=== PATIENT | male | born 1970 | race American Indian/Alaskan Native ===

== ENCOUNTER 2019-04-02 22:38 | Emergency (ER) | payer SELFPAY ==
[2019-04-02] MEDS ORDERED: THIAMINE 100 MG, FOLIC ACID 1 MG, MULTIPLE VITAMIN INJ, ADULT 10 ML in SODIUM CHLORIDE ... IV ONE (23:00)
[2019-04-02] MEDS ORDERED: FAMOTIDINE 20 MG/2 ML INJ IV ONE (23:00)
[2019-04-02] MEDS ORDERED: ONDANSETRON 4 MG/2 ML INJ IV ONE (23:00)
[2019-04-02] MEDS ORDERED: D5W/0.9% NACL 1,000 ML IV SCH (23:00)
--- NOTE | 2019-04-02 23:15 | Emergency Department Report ---
ED Alcohol HPI - General Chief Complaint: Alcohol Stated Complaint: DETOX Time Seen by Provider: 04/02/19 22:52 Source: patient, EMS Mode of arrival: Stretcher Limitations: No Limitations - History of Present Illness Initial Comments: 48-year-old male with a past medical history of alcohol abuse, bipolar and anxiety currently on BuSpar and Seroquel presents to the hospital complaining of nausea, vomiting, epigastric burning/reflux due to excessive alcohol intake the last 3 days. Patient states beer daily but lately states he's been overdoing it due to the recent in the family. He denies suicidal or homicidal ideation. He has a history of alcohol withdrawal tremors and seizures. He is not interested in inpatient detox. Compliant with his psychiatric medication. He denies melena, gross hematemesis, chest pain, or fever. pt also reports hx of "borderline HTN and elevated cholesterol" not currently on meds - Related Data Previous Rx's Medication Instructions Recorded Last Taken Type Famotidine [Pepcid] 20 mg PO BID #30 tablet 04/03/19 Unknown Rx Ondansetron [Zofran Odt] 4 mg PO Q8HR PRN #20 tab.rapdis 04/03/19 Unknown Rx Allergies Allergy/AdvReac Type Severity Reaction Status Date / Time No Known Allergies Allergy Unverified 04/02/19 23:19 ED Review of Systems ROS: Stated complaint: DETOX Other details as noted in HPI Comment: All other systems reviewed and negative ED Past Medical Hx - Past Medical History Previous Medical History?: Yes Hx Hypertension: Yes ("borderline") Hx Psychiatric Treatment: Yes (anxiety, bipolar) Additional medical history: borderline elevated cholesterol - Surgical History Past Surgical History?: No - Social History Smoking Status: Current Every Day Smoker Substance Use Type: Alcohol - Medications Home Medications: Home Medications Medication Instructions Recorded Confirmed Last Taken Type Famotidine [Pepcid] 20 mg PO BID #30 tablet 04/03/19 Unknown Rx Ondansetron [Zofran Odt] 4 mg PO Q8HR PRN #20 tab.rapdis 04/03/19 Unknown Rx ED Physical Exam - General Limitations: No Limitations - Other Other exam information: General: No acute distress Head: Atraumatic Eyes: normal appearance ENT: Moist mucous membranes Neck: Normal appearance, no midline tenderness Chest: Clear to auscultation bilaterally CV: Regular rate and rhythm Abdomen: Soft, normal bowel sounds, mild epigastric tenderness, nondistended, no rebound or guarding Back: Normal inspection Extremity: Normal inspection infection, full range of motion Neuro: Alert O x 3, no facial asymmetry, speech clear, no gross motor sensory deficit, no tremor Psych: Appropriate behavior Skin: No rash ED Course Vital Signs 04/02/19 04/03/19 22:56 01:35 Temperature 98.8 F Pulse Rate 98 H 81 Respiratory 18 16 Rate Blood Pressure 162/89 Blood Pressure 128/95 [Left] O2 Sat by Pulse 96 97 Oximetry ED Medical Decision Making - Lab Data Result diagrams: 04/02/19 23:06 04/02/19 23:06 Lab Results 04/02/19 04/02/19 04/02/19 Range/Units 00:30 00:30 23:06 WBC 11.0 (4.5-11.0) K/mm3 RBC 5.18 H (3.65-5.03) M/mm3 Hgb 17.0 H (11.8-15.2) gm/dl Hct 48.6 H (35.5-45.6) % MCV 94 (84-94) fl MCH 33 H (28-32) pg MCHC 35 H (32-34) % RDW 14.4 (13.2-15.2) % Plt Count 288 (140-440) K/mm3 Lymph % (Auto) 33.5 (13.4-35.0) % Dickinson % (Auto) 6.4 (0.0-7.3) % Eos % (Auto) 2.0 (0.0-4.3) % Baso % (Auto) 0.6 (0.0-1.8) % Lymph # 3.7 (1.2-5.4) K/mm3 Dickinson # 0.7 (0.0-0.8) K/mm3 Eos # 0.2 (0.0-0.4) K/mm3 Baso # 0.1 (0.0-0.1) K/mm3 Seg Neutrophils % 57.6 (40.0-70.0) % Seg Neutrophils # 6.2 (1.8-7.7) K/mm3 Sodium (137-145) mmol/L Potassium (3.6-5.0) mmol/L Chloride (98-107) mmol/L Carbon Dioxide (22-30) mmol/L Anion Gap mmol/L BUN (9-20) mg/dL Creatinine (0.8-1.5) mg/dL Estimated GFR ml/min BUN/Creatinine Ratio % Glucose (75-100) mg/dL Calcium (8.4-10.2) mg/dL Magnesium (1.7-2.3) mg/dL Total Bilirubin (0.1-1.2) mg/dL AST (5-40) units/L ALT (7-56) units/L Alkaline Phosphatase (35-129) units/L Total Protein (6.3-8.2) g/dL Albumin (3.9-5) g/dL Albumin/Globulin Ratio % Lipase (13-60) units/L Urine Color Straw (Yellow) Urine Turbidity Clear (Clear) Urine pH 6.0 (5.0-7.0) Ur Specific [place] 1.010 (1.003-1.030) Urine Protein <15 mg/dl (Negative) mg/dL Urine Glucose (UA) >=500 (Negative) mg/dL Urine Ketones Neg (Negative) mg/dL Urine Blood Sm (Negative) Urine Nitrite Neg (Negative) Urine Bilirubin Neg (Negative) Urine Urobilinogen < 2.0 (<2.0) mg/dL Ur Leukocyte Esterase Neg (Negative) Urine WBC (Auto) < 1.0 (0.0-6.0) /HPF Urine RBC (Auto) < 1.0 (0.0-6.0) /HPF Urine Opiates Screen Presumptive negative Urine Methadone Screen Presumptive negative Ur Barbiturates Screen Presumptive negative Ur Phencyclidine Scrn Presumptive negative Ur Amphetamines Screen Presumptive negative U Benzodiazepines Scrn Presumptive negative Urine Cocaine Screen Presumptive negative U Marijuana (THC) Screen Presumptive negative Drugs of Abuse Note Disclamer Plasma/Serum Alcohol (0-0.07) % 04/02/19 04/02/19 Range/Units 23:06 23:06 WBC (4.5-11.0) K/mm3 RBC (3.65-5.03) M/mm3 Hgb (11.8-15.2) gm/dl Hct (35.5-45.6) % MCV (84-94) fl MCH (28-32) pg MCHC (32-34) % RDW (13.2-15.2) % Plt Count (140-440) K/mm3 Lymph % (Auto) (13.4-35.0) % Dickinson % (Auto) (0.0-7.3) % Eos % (Auto) (0.0-4.3) % Baso % (Auto) (0.0-1.8) % Lymph # (1.2-5.4) K/mm3 Dickinson # (0.0-0.8) K/mm3 Eos # (0.0-0.4) K/mm3 Baso # (0.0-0.1) K/mm3 Seg Neutrophils % (40.0-70.0) % Seg Neutrophils # (1.8-7.7) K/mm3 Sodium 140 (137-145) mmol/L Potassium 4.9 (3.6-5.0) mmol/L Chloride 97.9 L (98-107) mmol/L Carbon Dioxide 28 (22-30) mmol/L Anion Gap 19 mmol/L BUN 13 (9-20) mg/dL Creatinine 1.2 (0.8-1.5) mg/dL Estimated GFR > 60 ml/min BUN/Creatinine Ratio 11 % Glucose 106 H (75-100) mg/dL Calcium 9.8 (8.4-10.2) mg/dL Magnesium 2.30 (1.7-2.3) mg/dL Total Bilirubin 0.40 (0.1-1.2) mg/dL AST 20 (5-40) units/L ALT 28 (7-56) units/L Alkaline Phosphatase 104 (35-129) units/L Total Protein 7.4 (6.3-8.2) g/dL Albumin 4.8 (3.9-5) g/dL Albumin/Globulin Ratio 1.8 % Lipase 18 (13-60) units/L Urine Color (Yellow) Urine Turbidity (Clear) Urine pH (5.0-7.0) Ur Specific [place] (1.003-1.030) Urine Protein (Negative) mg/dL Urine Glucose (UA) (Negative) mg/dL Urine Ketones (Negative) mg/dL Urine Blood (Negative) Urine Nitrite (Negative) Urine Bilirubin (Negative) Urine Urobilinogen (<2.0) mg/dL Ur Leukocyte Esterase (Negative) Urine WBC (Auto) (0.0-6.0) /HPF Urine RBC (Auto) (0.0-6.0) /HPF Urine Opiates Screen Urine Methadone Screen Ur Barbiturates Screen Ur Phencyclidine Scrn Ur Amphetamines Screen U Benzodiazepines Scrn Urine Cocaine Screen U Marijuana (THC) Screen Drugs of Abuse Note Plasma/Serum Alcohol 0.21 H (0-0.07) % - Medical Decision Making pt tx with D5NS, banana bag, Zofran, and Pepcid in the ED with improvement. At discharge no signs of tremors alcohol withdrawal Gait steady Patient offer for inpatient detox Patient be discharged home - Differential Diagnosis substance abuse, alcohol abuse, Critical Care Time: No Critical care attestation.: If time is entered above; I have spent that time in minutes in the direct care of this critically ill patient, excluding procedure time. ED Disposition Clinical Impression: Alcohol intoxication, Alcohol abuse, Alcoholic gastritis Disposition: TO HOME OR SELFCARE Is pt being admited?: No Does the pt Need Aspirin: No Condition: Stable Instructions: Alcohol Intoxication (ED), Gastritis (ED) Additional Instructions: Take the medication as prescribed. Follow-up with your doctor or doctor/clinic provided. Return if symptoms worsen as indicated by your discharge instructions. Prescriptions: Famotidine [Pepcid] 20 mg PO BID #30 tablet Ondansetron [Zofran Odt] 4 mg PO Q8HR PRN #20 tab.rapdis PRN Reason: Nausea And Vomiting Referrals: PRIMARY CARE, [Primary Care Provider] - 3-5 Days [facility] [Provider Group] - 3-5 Days [facility] [Outside] - 3-5 Days Time of Disposition: 03:13
[2019-04-02 23:17] LABS: Basophils # (Auto) 0.1 K/mm3 (0.0-0.1); Eosinophils # (Auto) 0.2 K/mm3 (0.0-0.4); Monocytes # (Auto) 0.7 K/mm3 (0.0-0.8); Monocytes % (Auto) 6.4 % (0.0-7.3)
[2019-04-02 23:30] LABS: Basophils % (Auto) 0.6 % (0.0-1.8); Hematocrit 48.6 % (35.5-45.6); Lymphocytes # (Auto) 3.7 K/mm3 (1.2-5.4); Lymphocytes % (Auto) 33.5 % (13.4-35.0); Mean Corpuscular HGB Conc 35 % (32-34); Mean Corpuscular Volume 94 fl (84-94); Platelet Count 288 K/mm3 (140-440); Red Blood Count 5.18 M/mm3 (3.65-5.03); Red Cell Distribution Width 14.4 % (13.2-15.2)
[2019-04-02 23:42] LABS: Alanine Aminotransferase 28 units/L (7-56); Albumin 4.8 g/dL (3.9-5); BUN/Creatinine Ratio 11; Blood Urea Nitrogen 13 mg/dL (9-20); Calcium 9.8 mg/dL (8.4-10.2); Hemolysis Index 22
[2019-04-03 01:09] LABS: Bilirubin,Urine NEG (Negative); Blood,Urine SM (Negative); Color,Urine Straw (Yellow); Protein,Urine <15 mg/dL mg/dL (Negative); RBC,Urine < 1.0 /HPF (0.0-6.0); Urobilinogen,Urine < 2.0 mg/dL (<2.0); WBC,Urine < 1.0 /HPF (0.0-6.0)
[2019-04-03 01:15] LABS: Amphetamine Screen,Urine PRESUMPTIVE NEGATIVE; Benzodiazepines Screen,Urine PRESUMPTIVE NEGATIVE; Cannabinoid Screen,Urine PRESUMPTIVE NEGATIVE; Cocaine Screen,Urine PRESUMPTIVE NEGATIVE; Methadone Screen,Urine PRESUMPTIVE NEGATIVE; Opiate Screen,Urine PRESUMPTIVE NEGATIVE
[2019-04-03 03:27] VITALS: BP 134/83
== END 2019-04-03 03:27 | disposition home or self-care (01) ==
LOC: ED 22:38
DX: K29.20 Alcoholic gastritis without bleeding (principal); F10.129 Alcohol abuse with intoxication, unspecified; Z79.899 Other long term (current) drug therapy; I10 Essential (primary) hypertension; F32.9 Major depressive disorder, single episode, unspecified; E78.00 Pure hypercholesterolemia, unspecified; F17.200 Nicotine dependence, unspecified, uncomplicated
CPT/HCPCS: 36415; 80053; 80307; 81001; 83690; 83735; 85025; 96361; 96365; 96375; 99284; J2405; J3411; J7030; J7042; 80320; G0480

== ENCOUNTER 2019-09-25 15:06 | Emergency (ER) | payer SELFPAY ==
--- NOTE | 2019-09-25 15:36 | Emergency Department Report ---
Blank Doc - Documentation Documentation: 49-year-old male that presents with alcohol withdraw with shaking, nausea, and nervous. Last drink was last night. This initial assessment/diagnostic orders/clinical plan/treatment(s) is/are subject to change based on patient's health status, clinical progression and re-assessment by fellow clinical providers in the ED. Further treatment and workup at subsequent clinical providers discretion. Patient/guardians urged not to elope from the ED as their condition may be serious if not clinically assessed and managed. Initial orders include: 1- Patient sent to [facility] for further evaluation and treatment 2- labs 3- UA
[2019-09-25] MEDS ORDERED: LORazepam 2 MG/ML VIAL IV PRN ×2 (16:58)
[2019-09-25 17:04] LABS: Hematocrit 48.8 % (35.5-45.6); Hemoglobin 16.7 gm/dl (11.8-15.2); Mean Corpuscular HGB Conc 34 % (32-34); Mean Corpuscular Volume 94 fl (84-94); Platelet Count 186 K/mm3 (140-440); Red Blood Count 5.19 M/mm3 (3.65-5.03); Red Cell Distribution Width 14.5 % (13.2-15.2)
[2019-09-25] MEDS ORDERED: ONDANSETRON 4 MG/2 ML INJ IV ONE (17:13)
[2019-09-25 17:16] LABS: Alanine Aminotransferase 30 units/L (7-56); Albumin 5.1 g/dL (3.9-5); BUN/Creatinine Ratio 14; Blood Urea Nitrogen 14 mg/dL (9-20); Hemolysis Index 6
--- NOTE | 2019-09-25 17:20 | Emergency Department Report ---
ED Alcohol HPI - General Chief Complaint: Alcohol Stated Complaint: WITHDRAWLS,VOMITTING Time Seen by Provider: 09/25/19 15:35 Source: patient Mode of arrival: Ambulatory Limitations: No Limitations - History of Present Illness Initial Comments: Patient is 49 years old male with history of bipolar disorder and alcohol dependence. Patient presented to the ER stating that he is having some alcohol withdrawal symptoms. Patient stated that he has been drinking for the last 2 weeks straight and he tried to quit today but he started having shaking and he started having visual hallucination. Patient also stated that he started having nausea and vomiting. Patient denied any seizure. Patient also denied any suicidal or homicidal ideation. No visual or auditory hallucination. Patient stated that he has been in alcohol rehab before in [facility] a few years back. Complaint: alcohol withdrawal, alcohol dependence, desires rehab Last Drink: just PART TIME Chronic Alcohol Use: Yes Previous Visits for Alcohol Intoxication?: Yes Recent Trauma: No Treatments Prior to Arrival: none - Related Data Previous Rx's Medication Instructions Recorded Last Taken Type Famotidine [Pepcid] 20 mg PO BID #30 tablet 04/03/19 Unknown Rx Ondansetron [Zofran Odt] 4 mg PO Q8HR PRN #20 tab.rapdis 04/03/19 Unknown Rx Allergies Allergy/AdvReac Type Severity Reaction Status Date / Time metaxalone [From Skelaxin] Allergy Swelling Verified 09/25/19 15:10 ED Review of Systems ROS: Stated complaint: WITHDRAWLS,VOMITTING Other details as noted in HPI Comment: All other systems reviewed and negative Constitutional: denies: chills, fever Respiratory: denies: cough, orthopnea, shortness of breath Cardiovascular: denies: chest pain, palpitations, dyspnea on exertion, orthopnea Gastrointestinal: nausea, vomiting. denies: abdominal pain, diarrhea, constip ation, hematemesis, melena Neurological: denies: headache, weakness, numbness Psychiatric: anxiety, visual hallucinations. denies: depression, auditory hallucinations, homicidal thoughts, suicidal thoughts ED Past Medical Hx - Past Medical History Hx Hypertension: Yes ("borderline") Hx Psychiatric Treatment: Yes (anxiety, bipolar) Additional medical history: borderline elevated cholesterol - Social History Smoking Status: Never Smoker Substance Use Type: Alcohol - Medications Home Medications: Home Medications Medication Instructions Recorded Confirmed Last Taken Type Famotidine [Pepcid] 20 mg PO BID #30 tablet 04/03/19 Unknown Rx Ondansetron [Zofran Odt] 4 mg PO Q8HR PRN #20 tab.rapdis 04/03/19 Unknown Rx ED Physical Exam - General Limitations: No Limitations General appearance: alert, in no apparent distress, anxious - Head Head exam: Present: atraumatic, normocephalic, normal inspection - Eye Eye exam: Present: normal appearance - ENT ENT exam: Present: mucous membranes dry - Neck Neck exam: Present: normal inspection, full ROM. Absent: tenderness, meningismus, lymphadenopathy, thyromegaly - Respiratory Respiratory exam: Present: normal lung sounds bilaterally - Cardiovascular Cardiovascular Exam: Present: tachycardia - GI/Abdominal GI/Abdominal exam: Present: soft, normal bowel sounds. Absent: distended, tenderness, guarding, rebound, rigid, organomegaly, mass, bruit, pulsatile mass, hernia - Extremities Exam Extremities exam: Present: normal inspection, full ROM, normal capillary refill. Absent: tenderness, pedal edema, joint swelling, calf tenderness - Back Exam Back exam: Present: normal inspection, full ROM. Absent: CVA tenderness (R), CVA tenderness (L) - Neurological Exam Neurological exam: Present: alert, oriented X3, CN II-XII intact, normal gait, reflexes normal. Absent: motor sensory deficit - Psychiatric Psychiatric exam: Present: normal mood, anxious. Absent: homicidal ideation, suicidal ideation - Skin Skin exam: Present: warm, intact, normal color ED Course Vital Signs 09/25/19 09/25/19 09/25/19 15:14 15:15 17:21 Temperature 98.1 F 98.1 F Pulse Rate 103 H 103 H Respiratory 20 20 Rate Blood Pressure 157/96 148/85 Blood Pressure 157/96 [Left] O2 Sat by Pulse 96 97 Oximetry 09/25/19 09/25/19 09/25/19 17:30 17:46 18:00 Temperature Pulse Rate 85 96 H 83 Respiratory 15 13 12 Rate Blood Pressure 148/85 148/85 148/85 Blood Pressure [Left] O2 Sat by Pulse Oximetry 09/25/19 09/25/19 09/25/19 18:16 19:37 19:46 Temperature Pulse Rate 92 H 87 Respiratory 12 13 Rate Blood Pressure 148/85 144/95 144/95 Blood Pressure [Left] O2 Sat by Pulse Oximetry 09/25/19 20:00 Temperature Pulse Rate 86 Respiratory 14 Rate Blood Pressure 130/94 Blood Pressure [Left] O2 Sat by Pulse Oximetry ED Medical Decision Making - Lab Data Result diagrams: 09/25/19 16:48 09/25/19 16:48 - EKG Data -: EKG Interpreted by Me EKG shows normal: sinus rhythm Rate: normal - EKG Data Interpretation: no acute changes - Medical Decision Making Patient is 49 years old male with history of bipolar disorder and alcohol dependence. Patient presented to the ER stating that he is having some alcohol withdrawal symptoms. Patient stated that he has been drinking for the last 2 weeks straight and he tried to quit today but he started having shaking and he started having visual hallucination. Patient also stated that he started having nausea and vomiting. Patient denied any seizure. Patient also denied any suicidal or homicidal ideation. No visual or auditory hallucination. Patient stated that he has been in alcohol rehab before in [facility] a few years back. Patient CIWA score is 11. Patient received Ativan 2 mg. Patient also received Zofran for nausea and vomiting and is started on banana bag. Patient stated that he is feeling much better and he stated that he does not want to stay going to go home and he does not want a mental health assessment. Patient is currently alert, oriented x3 no acute distress and able to make sound decision there is no criteria for involuntary hold. Patient advised to return to the ER if his symptoms get worse. Critical care attestation.: If time is entered above; I have spent that time in minutes in the direct care of this critically ill patient, excluding procedure time. ED Disposition Clinical Impression: Alcohol withdrawal Disposition: DC-01 TO HOME OR SELFCARE Is pt being admited?: No Condition: Stable Instructions: Acute Nausea and Vomiting (ED), Abuse of Alcohol (ED) Referrals: PRIMARY CARE, [Primary Care Provider] - 3-5 Days
[2019-09-25] MEDS ORDERED: THIAMINE 100 MG, FOLIC ACID 1 MG, MULTIPLE VITAMIN INJ, ADULT 10 ML in SODIUM CHLORIDE ... IV ONE (17:30)
[2019-09-25 17:49] LABS: Albumin 5.2 g/dL (3.9-5); Bilirubin,Direct 0.3 mg/dL (0-0.2)
[2019-09-25] MEDS: LORazepam 2 MG/ML VIAL IV PRN ×2 (17:49→20:02)
[2019-09-25 20:12] VITALS: BP 130/94
[2019-09-25 20:25] LABS: Bilirubin,Urine NEG (Negative); Blood,Urine NEG (Negative); Color,Urine Yellow (Yellow); Mucus,Urine FEW /HPF; Urobilinogen,Urine < 2.0 mg/dL (<2.0)
[2019-09-25 20:28] LABS: WBC,Urine < 1.0 /HPF (0.0-6.0)
[2019-09-25 20:33] LABS: Amphetamine Screen,Urine PRESUMPTIVE NEGATIVE; Benzodiazepines Screen,Urine PRESUMPTIVE NEGATIVE; Cannabinoid Screen,Urine PRESUMPTIVE NEGATIVE; Cocaine Screen,Urine PRESUMPTIVE NEGATIVE; Methadone Screen,Urine PRESUMPTIVE NEGATIVE; Opiate Screen,Urine PRESUMPTIVE NEGATIVE
== END 2019-09-25 21:34 | disposition home or self-care (01) ==
LOC: ED 15:06
DX: F10.239 Alcohol dependence with withdrawal, unspecified (principal); F31.9 Bipolar disorder, unspecified; F41.9 Anxiety disorder, unspecified; I10 Essential (primary) hypertension; Z88.8 Allergy status to other drugs, medicaments and biological substances; Z98.890 Other specified postprocedural states
CPT/HCPCS: 36415; 80053; 80076; 80307; 81001; 83690; 85025; 93005; 96365; 96366; 96375; 99284; J2060; J2405; J3411; J7030; 80320; G0480

== ENCOUNTER 2020-01-16 17:03 | Emergency (ER) | payer SELFPAY ==
--- NOTE | 2020-01-16 18:15 | Emergency Department Report ---
Chief Complaint: Back Pain/Injury Stated Complaint: LOW BACK PAIN/FALL - HPI History of Present Illness: 49 y/o male comes in for lower back pain that is chronic. Patient was seen here several times last month. Patient is asking for narcotics for pain. - Exam Physical Exam: AxO times 3 NAD non toxic ambulatory MSE screening note: Focused history and physical exam performed. Due to findings the following was ordered: 49 y/o male comes in for lower back pain that is chronic. Patient was seen here several times last month. Patient is asking for narcotics for pain. Patient is given a referral to spine and ortho. ED Disposition for MSE Clinical Impression: Chronic back pain Disposition: Z-07 MED SCREENING EXAM-LEFT Is pt being admited?: No Does the pt Need Aspirin: No Condition: Stable Instructions: Chronic Back Pain (ED) Additional Instructions: Follow up with a back specialist. Referrals: RADHA BALDERAS II, MD [Staff Physician] - 3-5 Days DIEUDONNE VALENCIA MD [Staff Physician] - 3-5 Days
== END 2020-01-16 18:28 | disposition left against medical advice (07) ==
LOC: ED 17:03
DX: M54.5 Low back pain (principal); G89.29 Other chronic pain; Z53.21 Procedure and treatment not carried out due to patient leaving prior to being seen by health care provider

== ENCOUNTER 2020-12-31 03:59 | Emergency (ER) | payer SELFPAY ==
[2020-12-31 04:07] VITALS: BP 153/90
--- NOTE | 2020-12-31 05:05 | Emergency Department Report ---
ED General Adult HPI - General Chief complaint: Back Pain/Injury Stated complaint: BACK PAIN Time Seen by Provider: 12/31/20 04:49 Source: patient Mode of arrival: Ambulatory Limitations: No Limitations - History of Present Illness Initial comments: 50-year-old male patient with history of lumbar spinal stenosis presents to the emergency department with complaints of an acute exacerbation of chronic lower back pain for 1 week. No recent fall, trauma, injury. Patient underwent an MRI 2 years ago and was diagnosed with spinal stenosis. He is not currently under the care of a underwriting specialist or physical therapist. Patient has previously received spinal epidural injections with relief. Patient was evaluated at another local emergency department this week for his chronic back pain. He was given a Toradol injection and discharged home reportedly without any prescriptions. Patient walked to the emergency department from an apartment complex several blocks away. Denies fever, paresthesias, numbness, weakness, saddle anesthesia, bladder/bowel dysfunction. Denies all other complaints at this time. - Related Data Previous Rx's Medication Instructions Recorded Last Taken Type Famotidine [Pepcid] 20 mg PO BID #30 tablet 04/03/19 Unknown Rx Ondansetron [Zofran Odt] 4 mg PO Q8HR PRN #20 tab.rapdis 04/03/19 Unknown Rx Ondansetron [Zofran Odt] 4 mg PO Q8HR PRN #14 tab.rapdis 09/25/19 Unknown Rx Lidocaine [Lidoderm] 1 each TP BID #20 adh..patch 12/31/20 Unknown Rx Naproxen 500 mg PO BID #20 tablet 12/31/20 Unknown Rx Allergies Allergy/AdvReac Type Severity Reaction Status Date / Time metaxalone [From Skelaxin] Allergy Swelling Verified 09/25/19 15:10 ED Review of Systems ROS: Stated complaint: BACK PAIN Other details as noted in HPI Other: GENERAL: Negative for fever. CARDIOVASCULAR: Negative for chest pain. PULMONARY: Negative for shortness of breath. GASTROINTESTINAL: Negative for abdominal pain. MUSCULOSKELETAL: Positive for back pain. NEUROLOGICAL: Negative for headache. INTEGUMENTARY: Negative for rash. ED Past Medical Hx - Past Medical History Previous Medical History?: Yes Hx Hypertension: Yes ("borderline") Hx Psychiatric Treatment: Yes (anxiety, bipolar) Additional medical history: borderline elevated cholesterol - Surgical History Past Surgical History?: Yes Additional Surgical History: Right ankle - Social History Smoking Status: Former Smoker Substance Use Type: None (Denies illicit drug use), Alcohol - Medications Home Medications: Home Medications Medication Instructions Recorded Confirmed Last Taken Type Famotidine [Pepcid] 20 mg PO BID #30 tablet 04/03/19 Unknown Rx Ondansetron [Zofran Odt] 4 mg PO Q8HR PRN #20 tab.rapdis 04/03/19 Unknown Rx Ondansetron [Zofran Odt] 4 mg PO Q8HR PRN #14 tab.rapdis 09/25/19 Unknown Rx Lidocaine [Lidoderm] 1 each TP BID #20 adh..patch 12/31/20 Unknown Rx Naproxen 500 mg PO BID #20 tablet 12/31/20 Unknown Rx ED Physical Exam - General Limitations: No Limitations - Other Other exam information: General: Awake, appropriately interactive, no acute distress. Neck: Supple. Full range of motion intact. Cardiovascular: Normal peripheral perfusion. Pulmonary: No respiratory distress. Patient is speaking normally without use of accessory muscles. Skin: No apparent rashes or lesions. Neurological: No facial asymmetry. Speech is clear. Follows commands. Patient is alert and oriented. Musculoskeletal: Moves all four extremities spontaneously with normal range of motion. Back: Diffuse lumbar tenderness. No step-offs. No palpable muscle spasm. No s addle anesthesia. No evidence of bladder/bowel incontinence. Strength and sensation intact throughout. Ambulatory without assistance. Psych: Cooperative. Appropriate mood and affect. ED Course Vital Signs 12/31/20 04:06 Temperature 97.7 F Pulse Rate 103 H Respiratory 18 Rate Blood Pressure 153/90 [Left] O2 Sat by Pulse 96 Oximetry ED Medical Decision Making - Medical Decision Making The patients presentation is consistent with an acute exacerbation of chronic back pain. There is no clinical evidence of emergent pathology to warrant further testing, continued ED treatment, admission, or surgical evaluation at this point. It has been explained to the patient that further diagnostic testing on an emergent basis is not indicated and the most appropriate course of action is outpatient follow-up. The patient has requested spinal epidural injections and "something besides Toradol" for his back pain. The patient walked by himself to the emergency department and plans to walk home by himself once he is discharged from the emergency department. The patient has been informed of the risks associated with chronic opiate use and advised to seek consultation from orthopedics/underwriting specialist for definitive care. Referrals provided. The patients back pain is not associated with numbness, tingling, or loss of strength. There is no acute urinary incontinence or retention and no bowel incontinence or retention. There is no saddle anesthesia. The patient is afebrile and neurovascularly intact. No clinical evidence for acute nerve compression (such as cauda equine syndrome) or infection (such as epidural abscess). It has been explained to the patient that advanced imaging such as CT or MRI is not indicated at this time but should be considered if symptoms recur or worsen. Discharged home with appropriate prescriptions and instructions to follow up with primary care provider. Strict return precautions provided. Emphasized the importance of outpatient follow-up and specific signs/symptoms that should warrant immediate return to the emergency department. Patient expressed understanding and was given the opportunity to ask questions, all of which were satisfactorily answered prior to discharge home. BILLING/CODING: This patient encounter does not represent a certified medical emergency. Critical care attestation.: If time is entered above; I have spent that time in minutes in the direct care of this critically ill patient, excluding procedure time. ED Disposition Clinical Impression: Acute exacerbation of chronic low back pain Disposition: 01 HOME / SELF CARE / HOMELESS Is pt being admited?: No Does the pt Need Aspirin: No Condition: Stable Instructions: Chronic Back Pain Additional Instructions: Take Tylenol every 4 hours as needed for pain. Take Naprosyn twice daily with food as needed for pain. Apply Lidoderm patches to affected areas as needed for pain. Apply heat to affected areas as needed for pain. You must follow-up with an photographic specialist and/or underwriting specialist for definitive management of chronic back pain. See referral information below. Call today to schedule appointments. Return to the emergency department immediately for new or worsening symptoms. Prescriptions: Lidocaine [Lidoderm] 1 each TP BID #20 adh..patch Naproxen 500 mg PO BID #20 tablet Referrals: DIEUDONNE VALENCIA MD [Staff Physician] - 3-5 Days [facility] [Provider Group] - 3-5 Days Time of Disposition: 05:06
[2020-12-31] MEDS ORDERED: KETOROLAC 30 MG/1 ML INJ IM ONE (05:48)
== END 2020-12-31 05:06 | disposition home or self-care (01) ==
LOC: ED 03:59
DX: M54.5 Low back pain (principal); I10 Essential (primary) hypertension; F41.8 Other specified anxiety disorders; F31.9 Bipolar disorder, unspecified; G89.29 Other chronic pain; E78.00 Pure hypercholesterolemia, unspecified; Z98.890 Other specified postprocedural states; Z87.891 Personal history of nicotine dependence
CPT/HCPCS: 96372; 99281; J1885